=== PATIENT | female | born 1985 | race Caucasian/White ===

== ENCOUNTER 2019-07-29 20:31 | Emergency (ER) | payer OTHER, SELFPAY ==
[2019-07-29 20:32] VITALS: BP 148/68; PULSE 105; RESP 16; TEMP 36.8; O2SAT 100; BMI 23.9
--- NOTE | 2019-07-29 21:08 | ED.VISSUMM ---
- ER Visit Summary Date of Service: 07/29/19 Chief Complaint: at 15 weeks with vaginal bleeding History of Present Illness: The patient is a 34 F G5, P3 Ab1 without being miscarriages. Patient is 15 weeks . Her blood type is a positive. Her due date is January 20, 2020. She sees Dr. Cardoso of [facility]. Patient started having vaginal bleeding about an hour ago. She denies any dysuria. Only has mild cramping. Patient informs me she has had a pelvic ultrasound during this which showed a single live intrauterine . Physical Examination: Young female no acute distress vital signs stable afebrile. H EENT exam unremarkable. Lungs are clear. Heart regular rhythm rate about 100. No murmur. Abdomen soft. No peritoneal signs. Nondistended. Gravid nontender uterus. Extremities moves all 4. No edema. Neurologically she is awake alert with no focal motor deficits. Pelvic exam done with female nurse present in the room and patient present. She has mild vaginal bleeding. Blood in the vaginal vault. Office closed. No clots. No lesions. On bimanual exam she had a gravid uterus it was nontender. She had no adnexal tenderness. Test Results: None Emergency Department Course and Treatment: Nurse did heart tones and they were approximately 140. I spoke to the OB on-call Dr. Win and they will ensure close follow-up on Thursday. Treatment Plan: Follow-up with Dr. Moya on Thursday. Return if heavier bleeding or feeling worse. Tylenol for pain. Pelvic rest. Disposition: Discharge Impression: Vaginal bleeding at 15 weeks Threatened miscarriage This note was generated with [employer] dictation software. It may contain incorrect words, spelling, and punctuation that were not noted in review of the chart prior to signing ED Disposition - Plan for ED Patient: Disposition: Home or Assisted Living Instructions: POSSIBLE MISCARRIAGE (Threatened ) Referrals: Rachell Cervantes MD [STAFF PHYSICIAN] - As soon as possible Additional Instructions: Plenty of fluids and rest. Tylenol for pain. Pelvic rest meaning no intercourse or heavy lifting or exertion until seen in follow-up. If the vaginal bleeding gets a lot worse meaning heavy clots or you feel significant lightheaded return for further evaluation.
--- NOTE | 2019-07-29 21:10 | ED.DEP ---
ED Disposition - Plan for ED Patient: Disposition: Home or Assisted Living Instructions: POSSIBLE MISCARRIAGE (Threatened ) Referrals: Rachell Cervantes MD [STAFF PHYSICIAN] - As soon as possible Additional Instructions: Plenty of fluids and rest. Tylenol for pain. Pelvic rest meaning no intercourse or heavy lifting or exertion until seen in follow-up. If the vaginal bleeding gets a lot worse meaning heavy clots or you feel significant lightheaded return for further evaluation.
[2019-07-29 22:13] VITALS: PULSE 107; RESP 18
== END 2019-07-29 22:16 | disposition home or self-care (01) ==
LOC: ED 21:22
PROVIDERS: Emergency Provider Emergency Medicine
DX: O20.0 Threatened abortion (principal); Z3A.15 15 weeks gestation of pregnancy
CPT/HCPCS: 99282

== ENCOUNTER 2019-08-10 10:18 | Inpatient (IN) | payer OTHER, SELFPAY ==
[2019-08-10] VITALS (34 sets, daily range): BP systolic 96–136; BP diastolic 55–83; PULSE 73–123; TEMP 98.9–103.3; O2SAT 98–100; BMI 23.9
[2019-08-10 11:10] LABS: Absolute Lymphocyte Count 1.94 X10^3/uL (0.83-4.51); Absolute Neutrophil Count 15.3 X10^3/uL (2.0-7.7); Basophil# 0.04 X10^3/uL; Basophil% 0.2 % (0-1); Eosinophil# 0.02 X10^3/uL; Eosinophils% 0.1 % (0-5); Hematocrit 36.4 % (37-47); Hemoglobin 12.7 g/dL (12.0-15.0); Lymphocyte # 1.94 X10^3/ul (4.0); Lymphocyte % 10.5 % (19-41); Mean Corp Hgb Conc 34.9 g/dL (32-36); Mean Corpuscular Hgb 31.4 pg (27.0-32.0); Mean Corpuscular Volume 89.9 fL (81-99); Mean Platelet Vol. 11.5 fl (6.2-12.0); Monocyte# 1.17 X10^3/uL; Monocyte% 6.3 % (0-10); NRBC Flagged by Analyzer 0 % (0-5); Neutrophil # 15.28 X10^3/uL (2.7-7.7); Neutrophil % 82.4 % (47-70); Platelet Count 177 K/mm3 (150-450); RBC Distribution Width CV 13.2 % (11.6-14.6); RBC Distribution Width SD 43.4 fl (35.1-43.9); Red Blood Count 4.05 M/mm3 (4.2-5.4); White Blood Count 18.6 K/mm3 (4.4-11.0)
[2019-08-10] MEDS: miSOPROStol 200 MCG Tablet 400 MCG VAGINAL ×2 (11:36→16:04)
[2019-08-10] MEDS: 0.9% Saline Lock 10 ML Syringe IV ×2 (11:46→14:03)
[2019-08-10] MEDS: Lactated Ringers 1,000 ML 50 ML IV (14:03)
[2019-08-10] MEDS: Acetaminophen 325 MG Tablet PO ×2 (14:04→22:00)
--- NOTE | 2019-08-10 15:25 | PCM.HP.OB ---
History Date of Admission: 08/10/19 Final SHARAN: 01/20/20 Final SHARAN Source: US <20 weeks Gestational age: 16 Weeks and 5 Days History of this : This is a 34 year-old, G5, P3 Ab1 female who presents at 16 weeks 5 days with complaint of gush of fluid and some increased vaginal bleeding at approximately 2:30 AM. She had no fevers or chills before admission. She is had some cramping. Her has been complicated today by a subchorionic hemorrhage. Some intermittent vaginal bleeding. Past obstetrical history is significant for 3 full-term vaginal deliveries without complication and one spontaneous miscarriage in the first trimester. Allergies No Known Allergies Allergy (Verified 04/14/16 22:31) Home Medications: Home Medications Vits [Prenatabs FA ] 1 tab PO DAILY 04/15/16 Metronidazole [Flagyl] 500 mg PO BID 08/10/19 Smoking Status: Never smoker Number of Fetus(es): 1 History Past Pregnancies: Past Pregnancies Delivery Date Name GA/ Weeks Outcome Route Wt Sex Labor Length Anesthesia Delivery Location Provider FOB Review of Systems Constitutional: Denies: Chills, Fever Cardiovascular: Denies: Chest Pain Respiratory: Denies: Cough Gastrointestinal: Reports: Abdominal Pain. Denies: Constipation, Diarrhea Genitourinary: Denies: Dysuria Physical Exam General: Alert, Cooperative, No apparent distress Cardiovascular: Regular rate Lungs: Clear to auscultation, Normal air movement Abdomen: Soft, Non-Distended, Gravid, Appropriate for Gestational Age Extremities:: No edema Neurological: Cranial nerves II-XII grossly intact Assessment/Plan This is a 34 year-old, -0-1-3 at 16 weeks 5 days with spontaneous rupture membranes, and inevitable with parts in the vagina. Patient was admitted, parts were in the vagina. When I arrived to check the patient, parts were all in the vagina except for the skull. The cervix was still somewhat tight. I had her bear down, the head did not pass. At this point I discussed with the patient that we should attempt to complete the miscarriage with Cytotec. Vaginal misoprostol was given after discussion with the patient. After the patient was admitted, before delivery of the fetus I was notified of maternal fever. Antibiotics were ordered for chorioamnionitis. The fetus is now delivered, but the placenta remains behind the cervix. When I do a cervical exam she feels to be 3 cm dilated. Will give another dose of Cytotec if needed. Otherwise we will manage expectantly for placental delivery unless bleeding increases then we will proceed with D&C.
--- NOTE | 2019-08-10 20:20 | NURSING ---
wt 4.4 ounces, 8 inches long , 4 inch head circumfrence.
--- NOTE | 2019-08-10 20:55 | PN_ITS ---
Progress Note Patient is not appreciating any increased contractions. She is passed a couple of more small clots since delivery of the fetus. She continues to have a low- grade temperature. She is received IV gentamicin and ampicillin for chorioamnionitis and fever. After a second dose of vaginal Cytotec, she has not passed the placenta. I placed a speculum in the vagina and attempted to locate the placenta with a ring forcep. However, the patient was not adequately dilated to allow this. When I checked the patient she still now 2-1/2 cm and the cervix is very thick and firm. I discussed with her that delivery of the placenta may occur anytime, however it may be several more hours. We discussed risk of hemorrhage and infection and risk of proceeding now with the D&C versus waiting expectantly and doing the D&C should she not delivered by morning or if her fever worsens or she starts to bleed heavily. At this point I think is prudent to proceed with a D&C in a nonemergent fashion. Patient is comfortable with this plan. Benefits and alternatives and personnel were reviewed, consent was signed and her questions were answered to her satisfaction.
--- NOTE | 2019-08-10 21:00 | PLAC_PTH ---
PATIENT: RUBY ALAS LOC: [facility] U#:[id number] AGE/SX: 34/F ROOM: WP021 RE08/10/[address]: Dr. Rosalind Martinez MD : 1985 BED: 1 DIS: 08/11/2019 SPEC #: [id number] RECD: 08/10/19 23:56 STATUS: CARO REMichelle #: [id number] CARMELO: 08/10/19 21:[address]: Rosalind Martinez DEPT: SURGICAL PATHOLOGY RECD BY: Nicolas Soliz ENTERED: 08/11/19 08:50 SP TYPE: PLACENTA OTHR DR: Dr. Florencio Casanova MD Tissues: Placenta, NOS Procedures: Surgery Specimen Level V HEADER OPERATION: D & C PRE-OP DIAGNOSIS: demise; retained placenta, 16 week SAB, fever, SROM TISSUE SUBMITTED: Placenta MICROSCOPIC DIAGNOSIS Placenta: Immature placental tissue (221 gm) with focal area of intraparenchymal hemorrhage. Membranes - no pathologic diagnosis. TATI:rojelio 08/12/19 MICROSCOPIC DESCRIPTION Slides are reviewed. GROSS DESCRIPTION Received in fixative is one container labeled with the patient's name and designated placenta. The specimen consists of multiple pieces of placental tissue weighing in aggregate 221 gm and measures in aggregate 15 x 14 x 3 cm. A detached fragment of membrane is noted. The umbilical cord is not identified. Sections reveal a mayer, indurated area measuring 1.5 cm in greatest dimension. [employer] sections are submitted in four cassettes as follows: 1-3 - placental pieces, 4 - membrane. / TATI:rjoelio 08/11/19 TC:5 CPT: 09265
[2019-08-10] MEDS: Methylergonovine 0.2 MG/ML Ampul IM (21:09)
--- NOTE | 2019-08-10 21:47 | PCM.OPRPT ---
Vaginal Delivery Maternal Presentation: - - incomplete spontaneous 16w 5 d Amniotic Membrane Rupture Type: Spontaneous at home Final SHARAN: 01/20/20 Gestational age: 16 Weeks and 5 Days Date of Procedure: 08/10/19 Pre-Operative Diagnosis: spontaneous , chorioamnionitis, retained placenta Post-Operative Diagnosis: Same Surgery/ Procedure Performed: Spontaneous Vaginal Delivery, - - Dilation and curettage for retained placenta Anesthesiologist: Soren Peters Type of Anesthesia: - - MAC Description of Procedure: Patient arrived to labor and delivery. Patient was feeling some pressure in her vagina. When I arrived to check her, parts were in the vagina except for the head. She was given Cytotec and then delivered spontaneously the fetus intact. The placenta did not deliver. She was given another dose of Cytotec and several hours later, the length was still not delivered. Her bleeding was minimal. However, she did have a fever and an increased white blood cell count consistent with chorioamnionitis. Ampicillin and gentamicin were started for this. After several hours the patient was still to 9 cm and the placenta was not able to be visualized via speculum exam. Risk benefits and alternatives to dilation and curettage in the OR were discussed with the patient. She desired to proceed. The patient was taken the operating room where she is prepped and draped in dorsolithotomy position. Her legs and arms were placed in a neurologically safe in neutral position. Speculum was placed in the vagina and the anterior lip of the cervix was grasped with a ring forcep. Using a ring forcep and then a banjo curette, I was able to gently curettaged out the placenta and fragments. There was minimal bleeding during the procedure. After several passes, no significant placental fragments or clots were removed. Several passes were made with the banjo curette with ultrasound guidance and the bright white endometrial stripe was noted. There is no cervical bleeding from the cervical loss. Instruments were removed from the vagina. Needle counts were correct. Vaginal sweep was completed by me. The patient was awakened and taken to her room in a stable condition. We will continue the ampicillin for 2 more doses and then the patient can be discharged home if she remains afebrile. Presentation: [place] Breech Placental Delivery Description: Curettage Placenta Disposition: Sent to Pathology Drain: - - none Estimated Blood Loss: 400 A gender: Male - Alonso Episiotomy Description: None Laceration: None Medications given after delivery: IV Pitocin, IM Methergin - x1 Complications: None
[2019-08-10] MEDS: Oxytocin 30 units/NS 500 ml 30 UNITS/500 ML IV.SOLN 334 UNITS IV (22:10)
[2019-08-11 04:54] VITALS: BP 80/42; PULSE 75
[2019-08-11 04:56] VITALS: BP 96/54; PULSE 75
[2019-08-11 04:57] VITALS: BP 96/54; PULSE 75; RESP 16; TEMP 37.6
[2019-08-11] MEDS: 0.9% Saline Lock 10 ML Syringe IV ×2 (04:58→05:30)
[2019-08-11 05:20] LABS: Hematocrit 28.8 % (37-47); Hemoglobin 9.8 g/dL (12.0-15.0); Mean Corpuscular Hgb 30.4 pg (27.0-32.0); Mean Corpuscular Volume 89.4 fL (81-99); Mean Platelet Vol. 11.5 fl (6.2-12.0); Platelet Count 145 K/mm3 (150-450); RBC Distribution Width CV 13.3 % (11.6-14.6); RBC Distribution Width SD 43.8 fl (35.1-43.9); Red Blood Count 3.22 M/mm3 (4.2-5.4); White Blood Count 10.1 K/mm3 (4.4-11.0)
[2019-08-11 08:01] VITALS: BP 114/57; PULSE 86
--- NOTE | 2019-08-11 08:04 | PN.OBGYN_ITS ---
Subjective: pt seen at bedside doing well. Patient reports good pain control. Mild lochia. Emotionally doing well discussed social work seeing her today. - Physical Exam Vitals/I&O's: Vital Signs Temp Pulse Resp BP 99.6 F H 75 16 96/54 L 08/11/19 04:57 08/11/19 04:57 08/11/19 04:57 08/11/19 04:57 Oxygen Delivery Method Room Air Weight: 59.421 kg Body Mass Index (BMI) 23.9 Intake and Output for Last 24 Hours 08/09/19 08/10/19 08/11/19 23:59 23:59 23:59 Intake Total 1307.92 / 1307.92 948.33 / 948.33 Output Total 900 / 900 Balance 407.92 / 407.92 948.33 / 948.33 General: Alert, Oriented x3 Abdomen: Soft, Non Tender, Non-Distended Extremities: No Calf Tenderness Laboratory Results 08/10/19 10:50: WBC 18.6 H, RBC 4.05 L, Hgb 12.7, Hct 36.4 L, MCV 89.9, MCH 31.4, MCHC 34.9, RDW Std Deviation 43.4, RDW Coeff of Veronica 13.2, Plt Count 177, MPV 11.5, Immature Gran % (Auto) 0.500, Neut % (Auto) 82.4 H, Lymph % (Auto) 10.5 L, [place] % (Auto) 6.3, Eos % (Auto) 0.1, Baso % (Auto) 0.2, Absolute Neuts (auto) 15.3 H, Absolute Lymphs (auto) 1.94, Nucleated RBC % 0 08/10/19 10:50: Blood Type A POSITIVE, Antibody Screen NEGATIVE 08/11/19 05:05: WBC 10.1, RBC 3.22 L, Hgb 9.8 L, Hct 28.8 L, MCV 89.4, MCH 30.4, MCHC 34.0, RDW Std Deviation 43.8, RDW Coeff of Veronica 13.3, Plt Count 145 L, MPV 11.5 Current Medications Acetaminophen (Tylenol) 1,000 mg PO Q8H PRN PRN PRN Reason: Pain Score 1-3/10 Bisacodyl (Dulcolax) 10 mg RECTAL UD PRN PRN Reason: If no BM Dibucaine (Dibucaine) 1 applic TOPICAL TID PRN PRN; Protocol PRN Reason: Discomfort Hydrocortisone (Hytone) 1 applic TOPICAL TID PRN PRN; Protocol PRN Reason: Discomfort Ampicillin Sodium 2 gm/ Sodium (Chloride) 100 mls @ 200 mls/hr IV Q6H [place] Last Infusion: 08/11/19 05:30 Dose: Infused Documented by: Methylergonovine Maleate (Methergine) 0.2 mg IM X1 PRN PRN Reason: Excess bleeding/uterine atony Last Admin: 08/10/19 21:09 Dose: 0.2 mg Documented by: Naproxen (Naprosyn) 500 mg PO Q8H PRN PRN PRN Reason: Pain Score 1-3/10 Ondansetron HCl (Zofran) 4 mg IV Q4H PRN PRN PRN Reason: Nausea Oxycodone HCl (Oxyir) 5 mg PO Q4H PRN PRN PRN Reason: Pain Score 6-10/10 Prochlorperazine Edisylate (Compazine Iv) 10 mg IV Q6H PRN PRN PRN Reason: NAUSEA/VOMITING Senna/Docusate Sodium (Senokot-S, Zahraa-Colace) 1 - 2 tablet PO DAILY PRN PRN PRN Reason: Constipation Simethicone (Mylicon) 80 mg PO PCHS PRN PRN Reason: Indigestion/Stomach pain Sodium Chloride () 5 - 15 ml IV UD PRN PRN Reason: SALINE FLUSH Last Admin: 08/11/19 05:30 Dose: 10 ml Documented by: Medical Necessity - Tobacco Use Smoking Status: Never smoker Assessment/Plan POD#1 s/p demise, retained placenta with D&C 1) Labs reviewed WBC- trending down 2) continue flagyl at home for BV 3) SW consult today 4) dc home
--- NOTE | 2019-08-11 08:13 | DCINST_ITS ---
Discharge Diet: No Restrictions Discharge Activity: Return to Normal Activity, May not drive while taking narcotic pain medications., May Shower May resume sexual activity in: 4-6 weeks Additional Activity Instructions:: Nothing in the vagina for 4-6 weeks. You may return to work/school in 6 weeks. Call your doctor if your incision/area has: Continuous Slow Oozing, Sudden Increased Bleeding, Increased Pain/ Swelling, Increased Redness, Foul Smelling Discharge Additional Instructions: If you experience any of the following, contact your healthcare provider. * Bleeding that soaks a pad every hour for 2 hours * Fever 100.4 or higher * Unrelieved incision or abdominal pain * Swelling, redness, discharge or bleeding from your incision or episiotomy site * Your incision begins to separate * Problems urinating (including inability to urinate or burning while urinating). * Visual changes * Severe headache * Flu-like symptoms * Pain or redness in one of both of your breasts * Pain, warmth, tenderness or swelling in your legs, especially the calf area * Frequent nausea and vomiting * Symptoms of depression or anxiety If you experience any of the following, call 911 or go to the nearest Emergency Room. * Chest pain * Problems breathing * Seizure activity * Partial or complete paralysis of a body part, slurred speech, weakness or drooping of the face, or a sudden inability to walk or hold your balance Allergies/Adverse Reactions: Allergies No Known Allergies Allergy (Verified 04/14/16 22:31) Medications to take at Discharge Vits [Prenatabs FA ] 1 tab PO DAILY 04/15/16 Metronidazole [Flagyl] 500 mg PO BID 08/10/19 Naproxen [Naprosyn] 500 mg PO Q8H PRN PRN #30 tab 08/11/19 The following prescriptions were given: Naproxen [Naprosyn] 500 mg PO Q8H PRN PRN #30 tab PRN Reason: Pain Score 1-3/10 Transmission Status: Pending to [facility]/pharmacy #[id number] When: Call to make an appointment with your doctor in 1-2 weeks. If you had elevated Blood Pressure or 4th degree laceration you will need to be seen in 2 weeks. Primary Care Physician: Florencio Casanova MD [Primary Care Provider] - Test Results: Test results from this visit will be discussed in further detail at your follow- up appointment, if applicable.
[2019-08-11 08:33] VITALS: BP 114/57; PULSE 86; RESP 16; TEMP 36.8
[2019-08-15 11:33] LABS: Pathology Specimen OB SEE PATHOLOGY REPORT
== END 2019-08-11 11:20 | disposition home or self-care (01) | DRG 770 ==
PROVIDERS: Admitting Provider Obstetrics & Gynecology; Referring Provider Obstetrics & Gynecology; Visit Provider Obstetrics & Gynecology
DX: O03.4 Incomplete spontaneous abortion without complication (principal); O41.1220 Chorioamnionitis, second trimester, not applicable or unspecified; O72.0 Third-stage hemorrhage; Z3A.16 16 weeks gestation of pregnancy; O32.8XX0 Maternal care for other malpresentation of fetus, not applicable or unspecified
CPT/HCPCS: 59050; 76815; 85025; 85027; 86850; 86900; 86901; 88307; 99218; J7120; A4216; G0378

== ENCOUNTER 2020-11-27 08:50 | Inpatient (IN) | payer OTHER, SELFPAY ==
[2019-08-10 10:45] VITALS: BMI 23.9
[2020-11-27] VITALS (19 sets, daily range): BP systolic 108–135; BP diastolic 56–76; PULSE 65–99; RESP 17; TEMP 36.7–37.4; O2SAT 86–99; BMI 31.1
--- NOTE | 2020-11-27 08:56 | PCM.HP.OB ---
HPI - General General Date of Admission: 11/27/20 HPI Narrative RUBY ALAS, is a 35 F who presents with ctxs. Maternal Data Information Final SHARAN: 11/28/20 PFSH PFSH Home Medications vit,[id number] [Prenatabs FA] 1 tab PO DAILY 04/15/16 [History Last Taken 08/10/19] metronidazole 500 mg PO BID 08/10/19 [History Last Taken 08/10/19] naproxen 500 mg PO Q8H PRN PRN #30 tab 08/11/19 [Rx Last Taken Unknown] Allergy/AdvReac Type Severity Reaction Status Date / Time No Known Allergies Allergy Verified 04/14/16 22:31 Social History Smoking Status: Never smoker History Elective abortions Hx Para 3 Spontaneous abortions Hx # Term Pregnancies Ectopic pregnancies Hx # Pregnancies Multiple births # of living children Addt'l History: See [facility] prenatals NST FHR Rate Baby A Baseline: 145 - just put on monitor Vital Signs Vital Signs Vital Signs: Weight Body Mass Index (BMI) 23.9 Physical Exam Const alert, oriented x3 and no apparent distress HEENT normocephalic GI soft to palpation, non-tender and non-distended Inspection: gravid Narrative: cvx - 5-6/80/-2 Labs Labs Labs: Blood Type A POSITIVE Antibody Screen NEGATIVE Hct 28.8 % (37-47) L Hgb 9.8 g/dL (12.0-15.0) L Rhogam given: No Assessment & Plan (1) Advanced maternal age (AMA) in : COMMENT: 39&6 in labor PLAN: Admit to L&D GBS positive - pcn per protocol Pain - epidural if desired Rapid COVID EFW - 9.5 lbs, patient with adequate pelvis Routine care
[2020-11-27] MEDS: Lactated Ringers 1,000 ML 200 ML IV (09:25)
[2020-11-27 09:38] LABS: Absolute Lymphocyte Count 1.36 X10^3/uL (0.83-4.51); Basophil# 0.04 X10^3/uL; Basophil% 0.3 % (0-1); Eosinophil# 0.05 X10^3/uL; Eosinophils% 0.4 % (0-5); Hematocrit 40.4 % (37-47); Hemoglobin 13.6 g/dL (12.0-15.0); Lymphocyte # 1.36 X10^3/ul (0.83-4.51); Mean Corp Hgb Conc 33.7 g/dL (32-36); Mean Corpuscular Hgb 31.2 pg (27.0-32.0); Mean Corpuscular Volume 92.7 fL (81-99); Mean Platelet Vol. 12.3 fl (6.2-12.0); Monocyte% 6.5 % (0-10); NRBC Flagged by Analyzer 0 % (0-5); Neutrophil # 9.97 X10^3/uL (2.7-7.7); Neutrophil % 81.1 % (47-70); Platelet Count 142 K/mm3 (150-450); RBC Distribution Width SD 44.8 fl (35.1-43.9); Red Blood Count 4.36 M/mm3 (4.2-5.4); White Blood Count 12.3 K/mm3 (4.4-11.0)
--- NOTE | 2020-11-27 13:13 | EX.PCM.OBRPT ---
Maternal Data Information Final SHARAN: 11/28/20 Vaginal Delivery Maternal Presentation Maternal Presentation: Active Labor Operative Information Date of Procedure: 11/27/20 Pre-Operative Diagnosis: Labor @ 39&6 Post-Operative Diagnosis: Same Surgery / Procedure Performed: Spontaneous Vaginal Delivery Type of Anesthesia: Local with 2% Lidocaine Estimated Blood Loss: 300ml Time of Delivery: 13:49 Findings Description of Procedure: Patient prepped & draped when C/C/+2. She pushed well to deliver the head. head gently guided to allow delivery of anterior and posterior shoulders. No excess traction placed on head. Body delivered and 3VC clamped & cut in delayed fashion. Placenta delivered with gentle traction and good uterine tone obtained. Presentation: RUBIN Amniotic Membrane Rupture Type: Artificial Amniotic Fluid Description: Clear Placental Delivery Description: Expressed Placenta Disposition: [facility] Specimen(s) Removed: Placenta Cord Vessel Description: 3 Vessels Cord Entanglement: None A Gender: Male (1 minute): 8 (5 minute): 9 Delayed Cord Clamping: Yes Post Vaginal Delivery Medications Given After Delivery: IV Pitocin Episiotomy Description: None Laceration: 2nd degree (perineal - repaired with 3-0 vicryl) Complication Complications: None
[2020-11-27] MEDS: Oxytocin 30 units/NS 500 ml 30 UNITS/500 ML IV.SOLN 334 UNITS IV (13:30)
[2020-11-27] MEDS: Acetaminophen 500 MG Tablet 1000 MG PO ×2 (14:14→20:53)
[2020-11-27] MEDS: Methylergonovine 0.2 MG/ML Ampul IM (14:47)
[2020-11-27] MEDS: 0.9% Saline Lock 10 ML Syringe IV (15:49)
--- NOTE | 2020-11-27 17:00 | PCM.DC ---
Discharge Instructions Diet Discharge Diet: No restrictions Activity Discharge Activity: May Shower May resume sexual activity in: 6 weeks Weight Bearing Status: Weight bearing as tolerated Dressing / Incision Call your doctor if you observe: Fever of 101 or Higher, Coldness, Increased Pain, Change in Color, Inability to urinate, Inability to have a bowel movement, Using more than 1 pad per hour, Shortness of breath, Dizziness, Fainting spells, Chest pain, Increased palpitations (irregular heartbeat), Calf discomfort and Uncontrolled pain Follow Up Care Please Follow Up With: Juan Carlos Rios MD When: Follow up in 2 and 6 weeks for visits. Test Results: Test results from this visit will be discussed in further detail at your follow-up appointment, if applicable. Discharge Plan Admission Admit Date/Time: 11/27/20 08:50 Primary Reason for Your Visit: Vaginal delivery Attending Provider: Juan Carlos Rios Discharge Orders/Prescriptions Prescriptions: Continued Prenatabs FA 1 TABLET tablet 1 tab PO DAILY RF: 0 naproxen 250 MG tablet 500 mg PO Q8H PRN PRN (Reason: Pain Score 1-3/10) Qty: 30 RF: 0 Discontinued metronidazole 500 MG tablet 500 mg PO BID RF: 0 Disposition Disposition (needs filled in before D/C Order can be placed): Home, Self Care
--- NOTE | 2020-11-27 17:02 | PN.OBGYN_ITS ---
Subjective Subjective Patient requests discharge as baby is being transferred to [facility]. Objective Data Objective Data Vital Signs: Vital Signs Temp Pulse BP Pulse Ox 99.3 F H 99 135/76 H 87 11/27/20 15:45 11/27/20 15:46 11/27/20 15:46 11/27/20 15:25 Weight: 173 lb Body Mass Index (BMI) 31.1 Intake & Output: Intake and Output for Last 24 Hours 11/25/20 11/26/20 11/27/20 23:59 23:59 23:59 Intake Total 1420 / 1420 Output Total 350 / 350 Balance 1070 / 1070 Lab / Micro Data Result Diagrams: 11/27/20 09:25 Labs: Laboratory Results - last 24 hr 11/27/20 11/27/20 09:25 09:25 WBC 12.3 H RBC 4.36 Hgb 13.6 Hct 40.4 MCV 92.7 MCH 31.2 MCHC 33.7 RDW Std Deviation 44.8 H RDW Coeff of Veronica 13.0 Plt Count 142 L MPV 12.3 H Immature Gran % (Auto) 0.700 Neut % (Auto) 81.1 H Lymph % (Auto) 11.0 L [place] % (Auto) 6.5 Eos % (Auto) 0.4 Baso % (Auto) 0.3 Absolute Neuts (auto) 10.0 H Absolute Lymphs (auto) 1.36 Nucleated RBC % 0 Blood Type A POSITIVE Antibody Screen NEGATIVE Micro: Microbiology 11/27/20 09:15 Mucosa - Nose SARS-CoV-2 Antigen (Rapid) - Final Physical Exam Const alert, oriented x3 and no apparent distress HEENT normocephalic GI soft to palpation, non-tender and non-distended GI Narrative: fundus firm, mid & below umbilicus Extremity normal to inspection and no calf tenderness Assessment & Plan (1) Advanced maternal age (AMA) in : COMMENT: - PPD#0 PLAN: D/c home per patient request
== END 2020-11-27 22:25 | disposition home or self-care (01) | DRG 807 ==
LOC: WPOUT 08:52 → WP 08:52
PROVIDERS: Admitting Provider Obstetrics & Gynecology; Visit Provider Obstetrics & Gynecology
DX: O99.824 Streptococcus B carrier state complicating childbirth (principal); Z37.0 Single live birth; Z3A.39 39 weeks gestation of pregnancy; O70.1 Second degree perineal laceration during delivery
CPT/HCPCS: 59050; 85025; 86850; 86900; 86901; 87426; 99218; J7120; A4216; G0378